=== PATIENT | female | born 1995 | race Two or more races ===

== ENCOUNTER → 2022-04-27 | Outpatient (CLI) | payer MEDICAID ==
[2022-04-27 12:38] LABS: Basophils # (auto) 0 10 ^3/uL (0-0.2); Basophils % (auto) 0.9 % (0.0-2.0); Eosinophils # (auto) 0 10 ^3/uL (0-0.8); Hematocrit 26.6 % (36.0-46.0); Hemoglobin 7.8 g/dL (12.2-16.2); Monocytes # (auto) 0.3 10 ^3/uL (0-1.3); Neutrophils % (auto) 72.4 % (37.0-80.0)
[2022-04-27 12:42] LABS: Eosinophils % (auto) 0.5 % (0.0-7.0); Lymphocytes % (auto) 20.4 % (10.0-50.0); Mean Corpuscular Hemoglobin 20.4 pg (28.0-32.0); Mean Corpuscular Hgb Conc. 29.2 g/dL (32.0-36.0); Mean Corpuscular Volume 69.9 fL (80.0-100.0); Monocytes % (auto) 5.8 % (0.0-12.0); Neutrophils # (auto) 3.7 10 ^3/uL (1.6-8.6); Nucleated Red Blood Cells % 0.2 %; Red Cell Distribution Width 19.6 % (11.8-14.3); White Blood Cell 5.1 10^3/uL (4.4-10.8)
[2022-04-28 07:06] LABS: RPR Non Reactive (Non Reactive)
== END | disposition home or self-care (01) ==
LOC: LAB 12:16
PROVIDERS: ATTEND Obstetrics & Gynecology
DX: Z34.80 Encounter for supervision of other normal pregnancy, unspecified trimester (principal); Z3A.00 Weeks of gestation of pregnancy not specified
CPT/HCPCS: 36415; 85025; 86592

== ENCOUNTER 2022-05-07 08:08 | Observation (INO) | payer BC, MEDICAID ==
[~2022-05-07] VITALS: Ht 167.6 cm; Wt 86.2 kg
[2022-05-07] MEDS ORDERED: SODIUM FERR GLUC 62.5MG/5ML 125 MG in SODIUM CHL 0.9% 100 ML IV ONE (08:30)
[2022-05-07] MEDS ORDERED: PREN-96 PO (08:41)
[2022-05-07] MEDS ORDERED: FERR27TA2 PO (08:41)
[2022-05-07] MEDS ORDERED: ceFAZolin 1GM/50ML 50 ML IV ONE (10:00)
[2022-05-07] MEDS ORDERED: CEPH-322 PO (11:06)
== END 2022-05-07 11:32 | disposition home or self-care (01) ==
LOC: LDRP 08:08
PROVIDERS: ADMIT Obstetrics & Gynecology; ATTEND Obstetrics & Gynecology
DX: O62.9 Abnormality of forces of labor, unspecified (principal); Z3A.35 35 weeks gestation of pregnancy
CPT/HCPCS: 59025; 81002; 94760; 96365; 96367; G0378; J0690; J2916; 96360; 96361; 96366

== ENCOUNTER → 2022-05-11 | Outpatient (CLI) | payer MEDICAID ==
[~2022-05-11] MED LIST: CEPH-322 PO; FERR27TA2 PO; PREN-96 PO
[2022-05-11 09:13] LABS: Basophils # (auto) 0 10 ^3/uL (0-0.2); Basophils % (auto) 0.9 % (0.0-2.0); Eosinophils # (auto) 0 10 ^3/uL (0-0.8); Eosinophils % (auto) 0.7 % (0.0-7.0); Hematocrit 25.7 % (36.0-46.0); Hemoglobin 7.7 g/dL (12.2-16.2); Lymphocytes # (auto) 0.9 10 ^3/uL (0.4-5.4); Lymphocytes % (auto) 19.7 % (10.0-50.0); Mean Corpuscular Hemoglobin 21.5 pg (28.0-32.0); Mean Corpuscular Volume 71.7 fL (80.0-100.0); Monocytes # (auto) 0.2 10 ^3/uL (0-1.3); Monocytes % (auto) 4.4 % (0.0-12.0); Neutrophils # (auto) 3.4 10 ^3/uL (1.6-8.6); Neutrophils % (auto) 74.3 % (37.0-80.0); Nucleated Red Blood Cells % 0.2 %; Red Blood Cells 3.58 10^6/uL (4.0-5.20); White Blood Cell 4.6 10^3/uL (4.4-10.8)
[2022-05-11 09:14] LABS: Red Cell Distribution Width 20.5 % (11.8-14.3)
[2022-05-12 05:06] LABS: RPR Non Reactive (Non Reactive)
== END | disposition home or self-care (01) ==
LOC: LAB 09:03
PROVIDERS: ATTEND Obstetrics & Gynecology
DX: Z34.80 Encounter for supervision of other normal pregnancy, unspecified trimester (principal); Z3A.00 Weeks of gestation of pregnancy not specified
CPT/HCPCS: 36415; 84112; 85025; 86592

== ENCOUNTER 2022-05-21 08:43 | Inpatient (IN) | payer MEDICAID ==
[~2022-05-21] VITALS: Ht 167.6 cm; Wt 87.5 kg
[2022-05-21] MEDS ORDERED: LACTATED RINGER'S 1,000 ML IV SCH (09:30)
[2022-05-21] MEDS ORDERED: diphenhdrAMINE HCL 25 MG CAP PO PRN (09:30)
[2022-05-21] MEDS ORDERED: LACTATED RINGER'S 1,000 ML IV ONE (09:30)
[2022-05-21] MEDS ORDERED: ceFAZolin 1GM/50ML 50 ML IV ONE (09:30)
[2022-05-21] MEDS ORDERED: oxyTOCIN 10 UNIT/ML 10ML VIAL ONE (09:53)
[2022-05-21] MEDS ORDERED: fentaNYL CITRATE 100 MCG/2 ML VL ONE (09:54)
[2022-05-21] MEDS ORDERED: ONDANSETRON HCL 4 MG/2 ML VIAL ONE (09:54)
[2022-05-21] MEDS ORDERED: MORPHINE SULF PF 5 MG/10 ML VIAL ONE (09:54)
[2022-05-21] MEDS ORDERED: DexAMETHasone SOD PHOS 10MG/1ML VIAL INJ ONE (09:54)
[2022-05-21 11:05] LABS: Urine Bacteria NONE SEEN /hpf (None Seen); Urine Blood Negative /uL (Negative); Urine Mucus FEW (None Seen); Urine Specific Gravity 1.022 (1.001-1.035); Urine WBC 1 /hpf (0 - 5)
[2022-05-21 11:15] LABS: Albumin 2.7 g/dL (3.4-5.0); Basophils # (auto) 0 10 ^3/uL (0-0.2); Calcium 6.5 mg/dL (8.5-10.1); Eosinophils # (auto) 0 10 ^3/uL (0-0.8); Nucleated Red Blood Cells % 0.1 %; Red Blood Cells 4.12 10^6/uL (4.0-5.20)
[2022-05-21 11:17] LABS: Basophils % (auto) 0.6 % (0.0-2.0); Eosinophils % (auto) 0.5 % (0.0-7.0); Hematocrit 30.8 % (36.0-46.0); Hemoglobin 8.8 g/dL (12.2-16.2); Lymphocytes % (auto) 23.1 % (10.0-50.0); Mean Corpuscular Hemoglobin 21.5 pg (28.0-32.0); Mean Corpuscular Hgb Conc. 28.7 g/dL (32.0-36.0); Mean Corpuscular Volume 74.8 fL (80.0-100.0); Monocytes # (auto) 0.2 10 ^3/uL (0-1.3); Monocytes % (auto) 5.1 % (0.0-12.0); Neutrophils # (auto) 3.1 10 ^3/uL (1.6-8.6); Neutrophils % (auto) 70.7 % (37.0-80.0); White Blood Cell 4.4 10^3/uL (4.4-10.8)
[2022-05-21 11:19] LABS: Alcohol, Urine < 3.0 mg/dL (0-10); Amphetamine Screen, Urine NEGATIVE (NEGATIVE); Barbiturate Scree,Urine NEGATIVE (NEGATIVE); Benzodiazephine Screen, Urine NEGATIVE (NEGATIVE); Bilirubin, Total 0.8 mg/dL (0.2-1.0); Cannabinoid Screen, Urine NEGATIVE (NEGATIVE); Cocaine Screen, Urine NEGATIVE (NEGATIVE); Opiate Scree,Urine NEGATIVE (NEGATIVE); Phencyclidine Screen, Urine NEGATIVE (NEGATIVE); Red Cell Distribution Width 22.6 % (11.8-14.3)
[2022-05-21 11:26] LABS: Potassium 2.7 mmol/L (3.5-5.1)
[2022-05-21 11:28] LABS: INR 0.91 (0.9-1.15); Partial Thromboplastin Time 27.1 sec (24.6-33.4)
[2022-05-21] MEDS ORDERED: SODIUM CHLORIDE LOCK 10 ML ONE (12:05)
[2022-05-21] MEDS ORDERED: PHENYLEPHRINE HCL 10 MG/ML VL ONE (12:05)
[2022-05-21] MEDS ORDERED: LACT. RINGERS/OXYTOCIN 20UNITS 1,000 ML IV ONE (12:30)
[2022-05-21] MEDS ORDERED: GUM (CHEWING) 1 GUM CHEW CHEW ONE (12:30)
[2022-05-21] MEDS ORDERED: ONDANSETRON HCL 4 MG/2 ML VIAL IV PRN ×3 (12:30→13:15)
[2022-05-21] MEDS ORDERED: FLUMAZENIL 0.1 MG/ML INJ 10ML MDV IV PRN (13:15)
[2022-05-21] MEDS ORDERED: NALBUPHINE HCL 10 MG/1ml INJECTION IV ONE (13:15)
[2022-05-21] MEDS ORDERED: ePHEDrine SULFATE 50 MG/ML AMP IV PRN (13:15)
[2022-05-21] MEDS ORDERED: hydrALAZINE HCL 20 MG/ML VL IV PRN (13:15)
[2022-05-21] MEDS ORDERED: LABETALOL HCL 5 MG/ML 4ML SYRINGE IV PRN (13:15)
[2022-05-21] MEDS ORDERED: fentaNYL CITRATE 100 MCG/2 ML VL IV PRN (13:15)
[2022-05-21] MEDS ORDERED: HYDROmorphone HCL 2 MG/ML VL/or syr IV PRN ×2 (13:15)
[2022-05-21] MEDS ORDERED: NALOXONE HCL 0.4 MG/ML VIAL IV PRN ×2 (13:15)
[2022-05-21] MEDS ORDERED: diphenhdrAMINE HCL 50 MG/1 ML VL IV PRN (13:15)
[2022-05-21] MEDS ORDERED: ONDANSETRON HCL 4 MG/2 ML VIAL IV ONE (13:48)
[2022-05-21] MEDS: ACETAMINOPHEN IV 1000 MG/100ML (10MG/ML) IV PRN ×2 (15:52→23:34)
[2022-05-21 18:30] VITALS: BP 103/52
[2022-05-21 19:30] VITALS: BP 104/55
[2022-05-21] MEDS ORDERED: POTASSIUM CHL 20 Meq TABLET PO ONE (20:15)
[2022-05-21 20:30] VITALS: BP 105/55
[2022-05-21] MEDS: ceFAZolin 1GM/50ML 50 ML IV SCH ×2 (20:30→21:20)
[2022-05-21 21:30] VITALS: BP 99/49
[2022-05-21 22:30] VITALS: BP 96/51
[2022-05-21 23:17] LABS: Basophils # (auto) 0 10 ^3/uL (0-0.2); Basophils % (auto) 0.1 % (0.0-2.0); Eosinophils # (auto) 0 10 ^3/uL (0-0.8); Monocytes # (auto) 0.3 10 ^3/uL (0-1.3); Neutrophils # (auto) 8.6 10 ^3/uL (1.6-8.6); White Blood Cell 9.6 10^3/uL (4.4-10.8)
[2022-05-21 23:19] LABS: Hematocrit 26.9 % (36.0-46.0); Hemoglobin 7.9 g/dL (12.2-16.2); Lymphocytes # (auto) 0.7 10 ^3/uL (0.4-5.4); Lymphocytes % (auto) 6.8 % (10.0-50.0); Mean Corpuscular Hemoglobin 21.9 pg (28.0-32.0); Mean Corpuscular Hgb Conc. 29.4 g/dL (32.0-36.0); Mean Corpuscular Volume 74.4 fL (80.0-100.0); Monocytes % (auto) 3.6 % (0.0-12.0); Neutrophils % (auto) 89.5 % (37.0-80.0); Red Blood Cells 3.61 10^6/uL (4.0-5.20)
[2022-05-21 23:30] VITALS: BP 100/54
[2022-05-22] VITALS (9 sets, daily range): BP systolic 97–109; BP diastolic 49–58
[2022-05-22] MEDS: ceFAZolin 1GM/50ML 50 ML IV SCH (04:55)
[2022-05-22 06:55] LABS: Basophils # (auto) 0 10 ^3/uL (0-0.2); Eosinophils # (auto) 0 10 ^3/uL (0-0.8); Lymphocytes # (auto) 1.6 10 ^3/uL (0.4-5.4); Monocytes # (auto) 0.6 10 ^3/uL (0-1.3); White Blood Cell 8.6 10^3/uL (4.4-10.8)
[2022-05-22 06:59] LABS: Basophils % (auto) 0.3 % (0.0-2.0); Eosinophils % (auto) 0.3 % (0.0-7.0); Hematocrit 28.3 % (36.0-46.0); Hemoglobin 8.2 g/dL (12.2-16.2); Lymphocytes % (auto) 18.3 % (10.0-50.0); Mean Corpuscular Hemoglobin 21.3 pg (28.0-32.0); Mean Corpuscular Hgb Conc. 28.8 g/dL (32.0-36.0); Monocytes % (auto) 6.7 % (0.0-12.0); Neutrophils # (auto) 6.4 10 ^3/uL (1.6-8.6); Neutrophils % (auto) 74.4 % (37.0-80.0); Red Blood Cells 3.82 10^6/uL (4.0-5.20)
[2022-05-22 07:04] LABS: Red Cell Distribution Width 22.3 % (11.8-14.3)
[2022-05-22] MEDS: ACETAMINOPHEN IV 1000 MG/100ML (10MG/ML) IV PRN (07:41)
[2022-05-22] MEDS ORDERED: HYDR-4902 PO (08:21)
[2022-05-22] MEDS ORDERED: IBUP800T27 PO (08:21)
[2022-05-22] MEDS ORDERED: DOCU-94 PO (08:21)
[2022-05-22] MEDS: POTASSIUM CHL 20 Meq TABLET PO SCH (10:02)
[2022-05-22] MEDS ORDERED: HYDROcodone-ACET 5/325MG TAB PO PRN (11:45)
[2022-05-22] MEDS ORDERED: BISACODYL 10 MG RECT SUPP PR PRN (11:45)
[2022-05-22] MEDS: IBUPROFEN 800 MG TAB PO PRN (12:10)
[2022-05-22] MEDS ORDERED: ceFAZolin 1GM/50ML 50 ML IV ONE (13:00)
[2022-05-22] MEDS: HYDROcodone-ACET 5/325MG TAB PO PRN (19:47)
[2022-05-22] MEDS ORDERED: TETANUS-DIPTH-ACEL PERTUSSIS 0.5ML SYR Tdap IM ONE (21:15)
[2022-05-22] MEDS: SIMETHICONE 80 MG CHEWABLE TABLET PO SCH (22:02)
[2022-05-22] MEDS: DOCUSATE SOD 100 MG CAP PO SCH (22:03)
[2022-05-23] MEDS: IBUPROFEN 800 MG TAB PO PRN ×3 (01:14→17:54)
[2022-05-23 03:10] VITALS: BP 94/51
[2022-05-23] MEDS: SIMETHICONE 80 MG CHEWABLE TABLET PO SCH ×4 (05:38→22:04)
[2022-05-23] MEDS: HYDROcodone-ACET 5/325MG TAB PO PRN (05:38)
[2022-05-23 07:25] VITALS: BP 116/55
[2022-05-23] MEDS: DOCUSATE CALCIUM 240 MG CAP PO SCH (10:15)
[2022-05-23] MEDS: POTASSIUM CHL 20 Meq TABLET PO SCH (10:15)
[2022-05-23] MEDS: DOCUSATE SOD 100 MG CAP PO SCH ×2 (10:15→22:04)
[2022-05-23 11:29] VITALS: BP 110/57
[2022-05-23 15:25] VITALS: BP 119/55
[2022-05-23 19:00] VITALS: BP 104/55
[2022-05-23] MEDS ORDERED: ACETAMINOPHEN 325 MG TAB PO PRN (20:15)
[2022-05-23] MEDS ORDERED: ACETAMINOPHEN 325 MG TAB PO ONE (21:56)
[2022-05-23 23:00] VITALS: BP 110/55
[2022-05-24 03:00] VITALS: BP 110/63
[2022-05-24] MEDS: IBUPROFEN 800 MG TAB PO PRN (03:02)
[2022-05-24] MEDS: SIMETHICONE 80 MG CHEWABLE TABLET PO SCH ×2 (05:25→12:50)
[2022-05-24 06:38] VITALS: BP 113/54
[2022-05-24 07:20] LABS: BUN/Creatinine Ratio 42.3; Calcium 6.7 mg/dL (8.5-10.1); Potassium 3.8 mmol/L (3.5-5.1)
[2022-05-24 08:06] LABS: RPR Non Reactive (Non Reactive)
[2022-05-24] MEDS: DOCUSATE CALCIUM 240 MG CAP PO SCH (10:20)
[2022-05-24] MEDS: DOCUSATE SOD 100 MG CAP PO SCH (10:21)
[2022-05-24 10:43] VITALS: BP 123/58
== END 2022-05-24 14:39 | disposition home or self-care (01) | DRG 539 ==
LOC: LDRP 08:43 → OBSVTOIN 09:18 → LDRP 21:26
PROVIDERS: ADMIT Obstetrics & Gynecology; ATTEND Obstetrics & Gynecology
PROC: 10D00Z1 Extraction of Products of Conception, Low, Open Approach (ICD-10-PCS; principal; 2022-05-21 11:39)
PROC: 0UL70CZ Occlusion of Bilateral Fallopian Tubes with Extraluminal Device, Open Approach (ICD-10-PCS; 2022-05-21 11:39)
DX: O99.02 Anemia complicating childbirth (principal); O34.211 Maternal care for low transverse scar from previous cesarean delivery; Z30.2 Encounter for sterilization; Z37.0 Single live birth; Z3A.37 37 weeks gestation of pregnancy; Z20.822 Contact with and (suspected) exposure to COVID-19
CPT/HCPCS: 36415; 59025; 80048; 80053; 80307; 81001; 84112; 85025; 85610; 85730; 86592; 86850; 86900; 86901; 86920; 87426; 90715; 94760; 94762; 96360; 96361; 96365; 96366; 96372; G0378; J0131; J0690; J1100; J2405; J2590

== ENCOUNTER 2023-12-26 13:05 | Inpatient (IN) | payer BC, MEDICAID ==
[2023-12-26] VITALS (7 sets, daily range): BP systolic 104–127; BP diastolic 50–66; PULSE 62–93; RESP 12–17; TEMP 98.1–98.9; O2SAT 98–99
[~2023-12-26] VITALS: Ht 167.6 cm; Wt 76.5 kg
[~2023-12-26 13:05] MED LIST changes: -CEPH-322 PO; +CEPH250C PO; +DOCU-94 PO; +FERR1TAB31 PO; -FERR27TA2 PO; +HYDR-4902 PO; +IBUP-1456 PO
[2023-12-26 14:15] LABS: Basophils # (auto) 0.1 10 ^3/uL (0-0.2); Eosinophils # (auto) 0 10 ^3/uL (0-0.8); Mean Corpuscular Volume 57.5 fL (80.0-100.0); Monocytes # (auto) 0.3 10 ^3/uL (0-1.3)
[2023-12-26 14:17] LABS: Basophils % (auto) 1.5 % (0.0-2.0); Eosinophils % (auto) 1.2 % (0.0-7.0); Hematocrit 25.5 % (36.0-46.0); Lymphocytes # (auto) 1.5 10 ^3/uL (0.4-5.4); Lymphocytes % (auto) 37.5 % (10.0-50.0); Mean Corpuscular Hemoglobin 15.5 pg (28.0-32.0); Monocytes % (auto) 7.6 % (0.0-12.0); Neutrophils # (auto) 2.1 10 ^3/uL (1.6-8.6); Neutrophils % (auto) 52.2 % (37.0-80.0); Nucleated Red Blood Cells % 0.2 %; Platelet Count (auto) 273 10^3/uL (140-450); Red Blood Cells 4.43 10^6/uL (4.0-5.20)
[2023-12-26 14:27] LABS: Red Cell Distribution Width 20.8 % (11.8-14.3)
[2023-12-26 14:29] LABS: Hemoglobin 6.9 g/dL (12.2-16.2)
[2023-12-26 14:32] LABS: Alanine Aminotransferase 18 U/L (7-40); Albumin 4.5 g/dL (3.2-4.8); Alkaline Phosphatase 123 U/L (46-116); Anion Gap 4 (5-15); Aspartate Aminotransferase 13 U/L (13-40); BUN/Creatinine Ratio 24.5 (10.0-20.0); Blood Urea Nitrogen 13 mg/dL (9-23); Calcium 8.4 mg/dL (8.7-10.4); Carbon Dioxide 25 mmol/L (20-30); Chloride 110 mmol/L (98-107); Glucose 82 mg/dL (74-106); Potassium 3.9 mmol/L (3.5-5.1); Sodium 139 mmol/L (136-145)
[2023-12-26 14:33] LABS: Bilirubin, Total 0.8 mg/dL (0.2-1.0); Total Protein 7.6 g/dL (5.7-8.2)
[2023-12-26 14:36] LABS: Urine Bacteria FEW /hpf (None Seen); Urine Blood Negative /uL (Negative); Urine Clarity Clear (Clear); Urine Color Light-Yellow (Yellow); Urine Protein, UAD Negative (Negative); Urine Specific Gravity 1.023 (1.001-1.035); Urine Urobilinogen 3 mg/dL (Negative); Urine WBC 2 /hpf (0 - 5)
[2023-12-26 14:52] LABS: Platelet Estimate Adequate
[2023-12-26 14:58] LABS: Anisocytosis Slight; Hypochromia Marked
[2023-12-26 14:59] LABS: Ovalocytes MANY
[2023-12-26] MEDS ORDERED: ONDANSETRON HCL 4 MG/2 ML VIAL IV PRN (18:15)
[2023-12-26] MEDS ORDERED: DOCUSATE SOD 100 MG CAP PO PRN (18:15)
[2023-12-26 20:07] LABS: % Iron Saturation 4.2 % (15-50)
[2023-12-26 20:16] LABS: Ferritin 1.2 ng/mL (10-291); Folate (Folic Acid) 17.7 ng/mL (>5.38)
[2023-12-26] MEDS: IRON SUCROSE COMPLEX 100 ML IV SCH (20:54)
[2023-12-26] MEDS: SODIUM CHLOR 0.9% PF (SALINE LOCK) 10ML VIAL/SYR IV SCH (22:00)
[2023-12-26] MEDS ORDERED: ONDA-188 PO (23:56)
[2023-12-27] VITALS (7 sets, daily range): BP systolic 112–127; BP diastolic 55–72; PULSE 61–66; RESP 16–19; TEMP 98–98.6; O2SAT 97–100
[2023-12-27] MEDS ORDERED: FERR1TAB31 PO (00:05)
[2023-12-27] MEDS: ACETAMINOPHEN 325 MG TAB PO PRN (00:30)
[2023-12-27 07:06] LABS: Basophils # (auto) 0.1 10 ^3/uL (0-0.2); Eosinophils # (auto) 0.1 10 ^3/uL (0-0.8); Lymphocytes # (auto) 1.9 10 ^3/uL (0.4-5.4); Mean Corpuscular Hemoglobin 18.5 pg (28.0-32.0); Mean Corpuscular Hgb Conc. 29.1 g/dL (32.0-36.0); Monocytes # (auto) 0.4 10 ^3/uL (0-1.3); White Blood Cell 6.2 10^3/uL (4.4-10.8)
[2023-12-27 07:12] LABS: Hematocrit 29.1 % (36.0-46.0); Hemoglobin 8.5 g/dL (12.2-16.2); Lymphocytes % (auto) 30.8 % (10.0-50.0); Mean Corpuscular Volume 63.7 fL (80.0-100.0); Monocytes % (auto) 6.3 % (0.0-12.0); Neutrophils # (auto) 3.8 10 ^3/uL (1.6-8.6); Neutrophils % (auto) 60.9 % (37.0-80.0); Nucleated Red Blood Cells % 0.2 %; Platelet Count (auto) 230 10^3/uL (140-450); Red Blood Cells 4.58 10^6/uL (4.0-5.20)
[2023-12-27 07:27] LABS: Red Cell Distribution Width 27.5 % (11.8-14.3)
[2023-12-27 07:51] LABS: Alanine Aminotransferase 16 U/L (7-40); Albumin 3.7 g/dL (3.2-4.8); Alkaline Phosphatase 105 U/L (46-116); Anion Gap 3 (5-15); Aspartate Aminotransferase 13 U/L (13-40); Blood Urea Nitrogen 9 mg/dL (9-23); Calcium 8.2 mg/dL (8.7-10.4); Carbon Dioxide 24 mmol/L (20-30); Chloride 111 mmol/L (98-107); Glucose 79 mg/dL (74-106); Sodium 138 mmol/L (136-145)
[2023-12-27 07:52] LABS: Bilirubin, Total 0.9 mg/dL (0.2-1.0); Total Protein 6.5 g/dL (5.7-8.2)
[2023-12-27 08:43] LABS: Platelet Estimate Adequate
[2023-12-27 08:45] LABS: Anisocytosis Moderate; Hypochromia Marked
[2023-12-27 08:46] LABS: Ovalocytes MANY
[2023-12-27] MEDS: ENOXAPARIN SOD 40 MG/0.4 ML SYRINGE SC SCH (10:44)
[2023-12-27] MEDS ORDERED: PANT40T PO (18:36)
== END 2023-12-27 20:20 | disposition home or self-care (01) | DRG 812 ==
LOC: ER 13:05 → OVERFLOW 18:03 → EEVIPCON 18:03 → WEST WING 23:48
PROVIDERS: ADMIT Internal Medicine; ATTEND Internal Medicine
PROC: 30233N1 Transfusion of Nonautologous Red Blood Cells into Peripheral Vein, Percutaneous Approach (ICD-10-PCS; principal; 2023-12-26)
DX: D50.9 Iron deficiency anemia, unspecified (principal); Z98.84 Bariatric surgery status; Z98.51 Tubal ligation status; Z90.49 Acquired absence of other specified parts of digestive tract
CPT/HCPCS: 36415; 80053; 81001; 81025; 82607; 82728; 82746; 82962; 83540; 83550; 85025; 86850; 86900; 86901; 86920; 93005; 99291; G0378; J1756

== ENCOUNTER → 2024-07-08 | Outpatient (CLI) | payer BC ==
[~2024-07-08] MED LIST changes: +ONDA-188 PO; +PANT40T PO
[2024-07-08 12:20] LABS: Basophils # (auto) 0 10 ^3/uL (0-0.2); Basophils % (auto) 1.8 % (0.0-2.0); Eosinophils # (auto) 0.1 10 ^3/uL (0-0.8); Eosinophils % (auto) 3.3 % (0.0-7.0); Hematocrit 33.5 % (36.0-46.0); Hemoglobin 10.4 g/dL (12.2-16.2); Lymphocytes # (auto) 1.2 10 ^3/uL (0.4-5.4); Lymphocytes % (auto) 51.4 % (10.0-50.0); Mean Corpuscular Hemoglobin 21.3 pg (28.0-32.0); Mean Corpuscular Hgb Conc. 31.2 g/dL (32.0-36.0); Mean Corpuscular Volume 68.2 fL (80.0-100.0); Monocytes # (auto) 0.3 10 ^3/uL (0-1.3); Monocytes % (auto) 11.7 % (0.0-12.0); Neutrophils # (auto) 0.7 10 ^3/uL (1.6-8.6); Neutrophils % (auto) 31.8 % (37.0-80.0); Platelet Count (auto) 280 10^3/uL (140-450); Red Cell Distribution Width 17.9 % (11.8-14.3); White Blood Cell 2.3 10^3/uL (4.4-10.8)
[2024-07-08 12:59] LABS: Alanine Aminotransferase 28 U/L (7-40); Albumin 4.4 g/dL (3.2-4.8); Anion Gap 7 (5-15); Aspartate Aminotransferase 27 U/L (13-40); BUN/Creatinine Ratio 11.8 (10.0-20.0); Bilirubin, Total 0.5 mg/dL (0.2-1.0); Calcium 8.8 mg/dL (8.7-10.4); Carbon Dioxide 26 mmol/L (20-31); Cholesterol 94 mg/dL (< 200); Glucose 83 mg/dL (74-106); LDL Cholesterol 56 mg/dL (< 100); Potassium 3.7 mmol/L (3.5-5.1); Sodium 141 mmol/L (136-145); Total Protein 7.4 g/dL (5.7-8.2); Triglycerides 65 mg/dL (< 150)
[2024-07-08 13:00] LABS: Alkaline Phosphatase 145 U/L (46-116); Blood Urea Nitrogen 6 mg/dL (9-23); Chloride 108 mmol/L (98-107); HDL Cholesterol 30 mg/dL (40-59)
[2024-07-08 13:03] LABS: Ferritin 4.6 ng/mL (10-291)
[2024-07-08 13:04] LABS: Free T4 (Free Thyroxine) 1.05 ng/dL (0.89-1.76)
[2024-07-08 13:35] LABS: Hepatitis B Core Total AB Negative (Negative)
[2024-07-08 13:51] LABS: Hepatitis A Total Antibody Positive (Negative); Hepatitis B Surface Antibody Negative (Negative); Hepatitis B Surface Antigen Negative (Negative); Hepatitis C Antibody Negative (Negative)
[2024-07-08 15:17] LABS: % Iron Saturation 7.2 % (15-50)
== END | disposition home or self-care (01) ==
LOC: LAB 11:31
PROVIDERS: ATTEND Nurse Practitioner Family
DX: Z11.3 Encounter for screening for infections with a predominantly sexual mode of transmission (principal); N64.9 Disorder of breast, unspecified; M79.89 Other specified soft tissue disorders; Z00.00 Encounter for general adult medical examination without abnormal findings
CPT/HCPCS: 36415; 80053; 80061; 82306; 82607; 82728; 83036; 83540; 83550; 84439; 84443; 85025; 86703; 86704; 86706; 86708; 86780; 86803; 87340

== ENCOUNTER 2024-08-23 08:07 | Day surgery (SDC) | payer BC ==
[2024-08-20 13:42] LABS: Urine Bacteria FEW /hpf (None Seen); Urine Blood 1+ /uL (Negative); Urine Clarity Clear (Clear); Urine Color Light-Yellow (Yellow); Urine Protein, UAD Negative (Negative); Urine Squamous Epithelial Cell FEW /hpf (<5); Urine Urobilinogen Normal (Negative); Urine WBC 3 /HPF (0-5); Urine pH 5.5 (5.0-9.0)
[2024-08-20 13:56] LABS: INR 1.01 (0.9-1.15); Partial Thromboplastin Time 29.6 SEC (24.5-34.5); Prothrombin Time 10.7 sec (9.3-11.8)
[2024-08-20 14:01] LABS: Basophils # (auto) 0 10 ^3/uL (0-0.2); Eosinophils # (auto) 0.1 10 ^3/uL (0-0.8); Eosinophils % (auto) 1.7 % (0.0-7.0); Hematocrit 32.9 % (36.0-46.0); Hemoglobin 9.9 g/dL (12.2-16.2); Lymphocytes # (auto) 1.9 10 ^3/uL (0.4-5.4); Lymphocytes % (auto) 37.4 % (10.0-50.0); Mean Corpuscular Hemoglobin 19.9 pg (28.0-32.0); Mean Corpuscular Hgb Conc. 30.1 g/dL (32.0-36.0); Mean Corpuscular Volume 66.2 fL (80.0-100.0); Monocytes # (auto) 0.3 10 ^3/uL (0-1.3); Monocytes % (auto) 6.4 % (0.0-12.0); Neutrophils # (auto) 2.6 10 ^3/uL (1.6-8.6); Neutrophils % (auto) 53.5 % (37.0-80.0); Platelet Count (auto) 306 10^3/uL (140-450); Red Blood Cells 4.97 10^6/uL (4.0-5.20); Red Cell Distribution Width 17.3 % (11.8-14.3); White Blood Cell 4.9 10^3/uL (4.4-10.8)
[2024-08-20 14:03] LABS: Alanine Aminotransferase 25 U/L (7-40); Albumin 4.3 g/dL (3.2-4.8); Anion Gap 8 (5-15); Aspartate Aminotransferase 22 U/L (13-40); BUN/Creatinine Ratio 27.9 (10.0-20.0); Bilirubin, Total 0.4 mg/dL (0.2-1.0); Blood Urea Nitrogen 17 mg/dL (9-23); Calcium 8.8 mg/dL (8.7-10.4); Carbon Dioxide 25 mmol/L (20-31); Glucose 83 mg/dL (74-106); Potassium 4.6 mmol/L (3.5-5.1); Sodium 141 mmol/L (136-145); Total Protein 7.5 g/dL (5.7-8.2)
[2024-08-20 14:04] LABS: Alkaline Phosphatase 145 U/L (46-116); Chloride 108 mmol/L (98-107)
[~2024-08-23] VITALS: Ht 167.6 cm; Wt 83.5 kg
[~2024-08-23 08:07] MED LIST changes: -CEPH250C PO; +CHOL200031 PO; -DOCU-94 PO; -FERR1TAB31 PO; -HYDR-4902 PO; -IBUP-1456 PO; +MULT-1018 OR; -ONDA-188 PO; -PANT40T PO; -PREN-96 PO
[2024-08-23] MEDS ORDERED: FLUMAZENIL 0.1 MG/ML INJ 10ML MDV IV ONE (08:46)
[2024-08-23] MEDS ORDERED: NALOXONE HCL 0.4 MG/ML VIAL ONE (08:46)
[2024-08-23] MEDS ORDERED: PROPOFOL 10 MG/ML 20 ML IV ONE ×3 (09:18→09:59)
[2024-08-23] MEDS ORDERED: LIDOCAINE 2% (LOCAL ANESTH.) PF 5ml SDV ONE (09:18)
[2024-08-23 10:09] VITALS: TEMP 97.2; O2SAT 100
[2024-08-23 10:39] VITALS: BP 113/62; PULSE 63; RESP 16; O2SAT 99
--- NOTE | 2024-08-23 12:18 | DVHOP2 ---
Operative Report DATE OF OPERATION: 08/23/24 PROCEDURE: Diagnostic Colonoscopy. PREOPERATIVE INDICATION: The patient is a 29 -year-old female undergoing colonoscopy for colon cancer screening with family history of colon cancer and change in bowel POSTOPERATIVE DIAGNOSES: 1. Patient had a very long tortuous and redundant colon making it difficult to negotiate the colon 2. Trace to 1+ internal hemorrhoids otherwise completely normal colonoscopy examination up to the cecum and terminal ileum PROCEDURE PERFORMED BY: Eusebio Keller M.D. SCOPE: Olympus videocolonoscope. ASA CLASS: 2. PREOPERATIVE MEDICATIONS: Mac Johnson santiago PROCEDURE IN DETAIL: After obtaining an informed consent, the patient was placed on left lateral decubitus position. She was then sedated with the above medications. A rectal examination was performed that was normal. The colonoscope was then passed through the anus into the rectosigmoid and through the descending, transverse, and ascending colon up to the cecum with visualization of the appendiceal orifice, base of the cecum and the ileocecal valve. The colonoscope was then withdrawn. The distal 5-10 cm of the terminal ileum were normal The patient had a very long tortuous and redundant colon with moderate tortuosity in the hepatic flexure in the transverse colon No polyps masses or lesions were seen. There was no colitis or diverticular disease On retroflexion and straight on view she had trace to 1+ internal hemorrhoids. The patient tolerated the procedure well without difficulty. WITHDRAWAL TIME: 7 minutes QUALITY OF THE PREP: Clark Bowel Prep score: 9. COMPLICATIONS : None SPECIMENS: None DISPOSITION: Stable D/C to home PLAN: 1. Repeat colonoscopy in 7-10 years 2. Resume GI soft diet advance as tolerated 3. Increase fluid and fiber intake 4. Outpatient follow up with me in 4-6 weeks to review results and discuss further management EUSEBIO KELLER MD Aug 23, 2024 12:18
--- NOTE | 2024-08-23 12:45 | DVHOP2 ---
Operative Report DATE OF OPERATION: 08/23/24 PROCEDURE: Upper Endoscopy with biopsy PREOPERATIVE INDICATION: The patient is a 29 -year-old female undergoing endoscopy for anemia and abdominal pain POSTOPERATIVE DIAGNOSES: 1. Patient has an intact gastrojejunostomy without any evidence of anastomotic ulcer or bleeding or gastro 2. 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 ASA CLASS: 2 PREOPERATIVE MEDICATIONS: MAC sedation, Johnson Zapata PROCEDURE IN DETAIL: After obtaining an informed consent, the patient was placed on left lateral decubitus position. The patient was then sedated with the above medications. A bite block was placed between her teeth. The endoscope was then passed through the oropharynx, into the esophagus, and through the stomach remnant Into the efferent and afferent loop of the gastrojejunostomy. Both the efferent and afferent loops were normal. The anastomosis appeared normal and there was no ulceration and no gastritis of the gastric remnant. Small bowel and gastric biopsies were obtained. 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 The patient tolerated the procedure well without difficulty. COMPLICATIONS : None SPECIMENS: Small bowel biopsy Gastric biopsy DISPOSITION: Stable D/C to home PLAN: 1. Await for biopsy result 2. Will place pt on Protonix 20 mg p.o. as needed 3. Resume GI soft diet advance as tolerated 4. DC aspirin NSAIDs smoking alcohol 5. Outpatient follow up with me in 4-6 weeks to review results and discuss further management EUSEBIO KELLER MD Aug 23, 2024 12:45
== END 2024-08-23 10:55 | disposition home or self-care (01) ==
LOC: GI 08:07
PROVIDERS: ATTEND Internal Medicine Gastroenterology
DX: R19.4 Change in bowel habit (principal); D64.9 Anemia, unspecified; K29.50 Unspecified chronic gastritis without bleeding; K63.89 Other specified diseases of intestine; B96.81 Helicobacter pylori [H. pylori] as the cause of diseases classified elsewhere; K64.8 Other hemorrhoids; K22.89 Other specified disease of esophagus; E66.3 Overweight; Z68.29 Body mass index [BMI] 29.0-29.9, adult; Z86.19 Personal history of other infectious and parasitic diseases; Z98.0 Intestinal bypass and anastomosis status; Z98.891 History of uterine scar from previous surgery; Z90.89 Acquired absence of other organs; Z98.51 Tubal ligation status; Z87.11 Personal history of peptic ulcer disease; Z98.84 Bariatric surgery status; Z98.890 Other specified postprocedural states; Z80.0 Family history of malignant neoplasm of digestive organs; Z82.49 Family history of ischemic heart disease and other diseases of the circulatory system
CPT/HCPCS: 36415; 43239; 45378; 80053; 81001; 84702; 85025; 85610; 85730; 88305; 88312; 88342; J2003; J2704; J7030